=== PATIENT | male | born 1990 | race Caucasian/White ===

== ENCOUNTER → 2019-10-31 16:06 | Outpatient (CLI) | payer OTHER, SELFPAY ==
--- NOTE | 2019-10-31 16:11 | MRI_ITS ---
STUDY: MRI BRAIN WITH AND WITHOUT CONTRAST REASON FOR EXAM: Male, 29 years old. On and off dizzy spells x 2-3 weeks TECHNIQUE: Standardized multiplanar fat and water weighted pulse sequences were obtained. 13ml Dotarem via IV was administered for the contrast portion of the examination. COMPARISON: None. FINDINGS: No intracranial mass, mass effect or midline shift. No enhancing lesion. No hemorrhage, territorial infarct or acute ischemia. Normal size of the ventricles and extra-axial spaces for the patient''s age. Normal white matter tracts of the supratentorial brain. Normal bilateral basal ganglia. Normal thalami. There is no extra-axial fluid accumulation. Normal flow voids within the major intracranial circulation suggesting patency by spin echo criteria. There is no enhancing intra-axial or extra-axial abnormality. Normal sella turcica, pituitary gland, infundibular stalk, optic chiasm and hypothalamus. Normal midbrain, billy and medulla. Normal cerebellum. Normal basal cisterns. Normal bilateral temporal bones. Normal bilateral internal auditory canals. No demonstrated orbital abnormality, within the constraints of a routine brain study. Mild mucosal thickening in the right maxillary sinus. Normal calvarium and skull base. Normal visualized soft tissue structures. MRI/Brain W/WO Contrast IMPRESSION: Trace chronic sinusitis otherwise negative unenhanced and enhanced MRI of the brain. Electronically Signed: Melissa Rojo MD at 22:54 EDT Tel , Service support ,
--- NOTE | 2019-10-31 16:15 | RAD_ITS ---
STUDY: X-RAY - ORBITS REASON FOR EXAM: Male, 29 years old. PRE MRI CLEARANCE TECHNIQUE: 2 view(s) of the orbits were obtained. COMPARISON: None. FINDINGS: Normal bilateral orbits without a metallic orbital foreign body. Normal visualized facial bones. Normal paranasal sinuses. The soft tissue structures are unremarkable. RAD/Orbits for Foreign Body IMPRESSION: No demonstrated metallic orbital foreign body. The patient is cleared for an MRI examination. Electronically Signed: Thor Truong MD at 16:55 EDT Tel , Service support ,
== END ==
PROVIDERS: Referring Provider Otolaryngology; Visit Provider Otolaryngology
DX: R42 Dizziness and giddiness (principal)
CPT/HCPCS: 70030; 70553; A9575

== ENCOUNTER 2020-05-11 08:58 | Outpatient (RCR) | payer BC, SELFPAY | END 2020-07-17 23:59 | LOC: IMMUN 08:58 | PROVIDERS: PCP Preventive Medicine Occupational Medicine; Visit Provider Family Medicine | DX: Z23 Encounter for immunization (principal) | CPT/HCPCS: 0001A; 0002A; 91300 ==